=== PATIENT | female | born 1950 | race Caucasian/White ===

== ENCOUNTER 2016-12-02 10:12 | Emergency (ER) | payer MEDICARE, MEDICAID ==
[2016-12-02 10:29] VITALS: BP 148/83
--- NOTE | 2016-12-02 12:15 | ED ---
Lower Extremity - HPI Summary HPI Summary: Patient presents to the ED with CC of right knee pain after feeling a "pop" sensation last evening and has been unable to bear weight since that time. 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 She has injured the right knee last year after straining a muscle last fall. She has taken ibuprofen and tylenol with relief of pain. She arrives to the ED with a knee brace and feels this reduces her pain and is able to stand briefly on the knee with the knee brace. She has never injured the knee otherwise and has never had a ligamentous tear. Denies calf pain. Denies recent travel. She quit smoking 3 months ago. She has been icing with relief. Thorough physical exam was performed, focusing on knee special tests. Pain on palpation over lateral aspect and inferior aspect of knee with mild amount of effusion. Due to patient pain around injury, physical exam was limited. Valgus and varus force without pain. No posterior sag sign, -posterior drawer test, - anterior drawer test. Quadriceps active test negative. No temperature change or pallor noted bilaterally. No ecchymosis noted over knee. No lesion or disruption of skin is seen. Able to bear weight but with brace present. Pulses intact bilaterally. Cap refill good. Patient is in no acute distress and VS are good. - History of Current Complaint Chief Complaint: EDExtremityLower Stated Complaint: RT KNEE PAIN Time Seen by Provider: 12/02/16 11:34 Hx Obtained From: Patient Mechanism Of Injury: Twisted Onset of Pain: Immediate Onset/Duration: Hours Severity Initially: Moderate Severity Currently: Moderate Pain Intensity: 3 Pain Scale Used: 0-10 Numeric Timing: Constant Location: Is Discrete @ - inferior and lateral right knee Character Of Pain: Aching Associated Signs And Symptoms: Positive: Swelling Aggravating Factor(s): Standing, Ambulation Alleviating Factor(s): Rest, Other - brace Able to Bear Weight: Yes - Risk Factors Gout Risk Factors: Age Over 40 DVT Risk Factors: Malignancy Septic Arthritis Risk Factor: Negative - Allergies/Home Medications Allergies/Adverse Reactions: Allergies Allergy/AdvReac Type Severity Reaction Status Date / Time Penicillins Allergy Intermediate Anxiety Verified 08/09/16 17:26 Hydrocortisone Allergy Unknown Verified 08/09/16 17:26 Reaction Details NSAIDs Allergy Bleeding Verified 08/09/16 17:26 PMH/Surg Hx/FS Hx/Imm Hx Previously Healthy: Yes Endocrine/Hematology History: Denies: Hx Diabetes, Hx Thyroid Disease Cardiovascular History: Denies: Hx Hypertension Respiratory History: Denies: Hx Asthma, Hx Chronic Obstructive Pulmonary Disease (COPD) GI History: Reports: Hx Ulcer - esophageal ulcer - Cancer History Cancer Type, Location and Year: Breast cancer 2003, left breast, sentinel node biopsy -negative- had a lumpectomy, had chemo and radiation. - Surgical History Surgery Procedure, Year, and Place: Right breast lumpectomy 2003, Left ACL and lateral ligament 1979, tonsilectomy and adenoidectomy, Oral surgery - Immunization History Hx Pertussis Vaccination: No Immunizations Up to Date: Unable to Obtain/Confirm Infectious Disease History: No Infectious Disease History: Denies: Hx Hepatitis, Hx Human Immunodeficiency Virus (HIV), Traveled Outside the [place] in Last 30 Days - Family History Known Family History: Positive: Cardiac Disease, Other - prostate and breast CA Negative: Hypertension, Diabetes - Social History Occupation: Employed Part-time Lives: With Family Alcohol Use: None Alcohol Amount: sober 5 years Hx Substance Use: No Substance Use Type: Reports: None Smoking Status (MU): Former Smoker Review of Systems Constitutional: Negative Negative: Fever, Chills, Fatigue Eyes: Negative Cardiovascular: Negative Respiratory: Negative Genitourinary: Negative Positive: no symptoms reported, see HPI Positive: Arthralgia Skin: Negative Psychological: Normal All Other Systems Reviewed And Are Negative: Yes Physical Exam Triage Information Reviewed: Yes Vital Signs On Initial Exam: Initial Vitals Temp Pulse Resp BP Pulse Ox 97.6 F 84 20 148/83 100 12/02/16 10:26 12/02/16 10:26 12/02/16 10:26 12/02/16 10:12/02/16 10:26 Vital Signs Reviewed: Yes Appearance: Positive: Well-Appearing, Well-Nourished Skin: Positive: Warm, Skin Color Reflects Adequate Perfusion Head/Face: Positive: Normal Head/Face Inspection Eyes: Positive: EOMI, JOSESITO, Conjunctiva Clear Neck: Positive: Supple, No Lymphadenopathy Respiratory/Lung Sounds: Positive: Clear to Auscultation, Breath Sounds Present Cardiovascular: Positive: Normal, RRR, Pulses are Symmetrical in both Upper and Lower Extremities Musculoskeletal: Positive: Pain @ - inferior and lateral right knee Neurological: Positive: Normal, Sensory/Motor Intact, Speech Normal Psychiatric: Positive: Normal - Camila Coma Scale Coma Scale Total: 15 Diagnostics - Vital Signs Vital Signs Temp Pulse Resp BP Pulse Ox 12/02/16 10:26 97.6 F 84 20 148/83 100 - Laboratory Lab Statement: Any lab studies that have been ordered have been reviewed, and results considered in the medical decision making process. Lower Extremity Course/Dx - Course Course Of Treatment: Patient was triaged and assessed. History obtained by provider. Medications and allergies reviewed. Past medical history, surgical history and social history reviewed. Physical exam performed. Some laxity in the joint, but otherwise all tests normal including anterior drawer and sag sign. Patient sent to imaging. Xray negative for fracture or other acute findings. Soft tissue swelling noted over the knee. Patient given orthopedic follow up in 5-7 days. Encouraged Ibuprofen 600mg three times daily with meals for pain. Return precautions given. Educated patient regarding knee injuries and healing time and the possibility of further evaluation and imaging as orthopedist sees fit. She sees Dr. René Joe for arthritis and would like to be referred back. Patient educated on course of treatment and return precautions. Patient discharged home in stable condition with appropriate medications and interventions. She will continue with her brace, and will not receive a knee immobilizer at this time d/t the stability the brace provides her. She is OK with plan. - Diagnoses Differential Diagnosis/HQI/PQRI: Positive: Dislocation, Fracture (Closed), Sprain, Strain Provider Diagnoses: Knee strain Discharge - Discharge Plan Condition: Stable Disposition: HOME Patient Education Materials: Knee Pain (ED) Referrals: René Joe MD [Medical Doctor] - Matti Middleton MD [Primary Care Provider] - Additional Instructions: Ibuprofen 600mg three times daily with meals for pain. Follow up with orthopedic physician in 5-7 days. If numbness, tingling, decreased sensation, increased pain, temperature changes or pallor noted in toes, come back to ER immediately. Protect the area. For your comfort level, do not bear weight, pull or push until you can injury is somewhat healed. This may involve the need for immobilization or crutches for a period of time. Rest the involved area, but not too long. You may need to be off your injury for some time to allow for healing, however excessive immobilization of joints can lead to stiffness and delay healing time. Early mobilization is encouraged if it is pain-free. Ice. Not directly on the skin. Cover with a towel. Apply ice no more than 30 minutes at a time Compression: You may use and keep an papi wrap bandage over the injury to decrease swelling. Again, this should be limited and be taken off periodically to encourage early range of motion and mobilization. Elevate: Try to elevate the injured area above the heart whenever possible.
--- NOTE | 2016-12-02 12:29 | RAD ---
HISTORY: Right knee pain, injury COMPARISONS: None VIEWS: 5, Frontal, lateral, axial, and oblique views FINDINGS: BONE DENSITY: Normal. BONES: There is no displaced fracture. JOINTS: There is no arthropathy. There is no suprapatellar joint effusion or lipohemarthrosis. ALIGNMENT: There is no dislocation. SOFT TISSUES: Unremarkable. OTHER FINDINGS: None. IMPRESSION: NO ACUTE OSSEOUS INJURY. IF SYMPTOMS PERSIST, RECOMMEND REPEAT IMAGING.
== END 2016-12-02 13:12 | disposition home or self-care (01) ==
LOC: ED 10:12
DX: S86.911A Strain of unspecified muscle(s) and tendon(s) at lower leg level, right leg, initial encounter (principal); M25.561 Pain in right knee; Z87.891 Personal history of nicotine dependence; X58.XXXA Exposure to other specified factors, initial encounter; Y93.9 Activity, unspecified; Y92.9 Unspecified place or not applicable; Z85.3 Personal history of malignant neoplasm of breast
CPT/HCPCS: 99282

== ENCOUNTER 2018-02-14 09:54 | Emergency (ER) | payer MEDICARE, MEDICAID ==
[2018-02-14 10:05] VITALS: BP 131/82
--- NOTE | 2018-02-14 10:08 | UC ---
Lower Extremity/Ankle HPI - HPI Summary HPI Summary: Pleasant 67 yo female c/o L foot pain x approx 3 weeks. Seems worse last few days, guillermo in AM. Accidently got foot stuck between house and deck, felt pain immediately. Has been alternating heat / ice, without much relief. Has been taking ibuprofen, so far gi ok ("allergy" - gi), not sure how much helping. No prox calf pain. No pain in toes. Does have hx BLE distal neuropathy, not sure if hereditary vs medication related. Does have sensation LT both feet. Currently healthy although sign pmh. - History of Current Complaint Chief Complaint: UCLowerExtremity Stated Complaint: L FOOT INJURY Time Seen by Provider: 02/14/18 10:07 Hx Obtained From: Patient Pain Intensity: 7 - Allergies/Home Medications Allergies/Adverse Reactions: Allergies Allergy/AdvReac Type Severity Reaction Status Date / Time hydrocortisone Allergy Unknown Verified 02/14/18 10:07 Reaction Details NSAIDS (Non-Steroidal Allergy Bleeding Verified 02/14/18 10:07 Anti-Inflamma Penicillins Allergy Anxiety Verified 02/14/18 10:07 Home Medications: Home Medications Acetaminophen [APAP] 325 mg PO DAILY PRN 02/14/18 [History Confirmed 02/14/18] Anastrozole [Arimidex] 1 mg PO DAILY 02/14/18 [History Confirmed 02/14/18] Enalapril TAB* [Vasotec TAB*] 5 mg PO DAILY 02/14/18 [History Confirmed 02/14/18 ] PMH/Surg Hx/FS Hx/Imm Hx Previously Healthy: Yes - hx breast ca x 2 - Surgical History Surgical History: Yes Surgery Procedure, Year, and Place: Right breast lumpectomy 2003, Left ACL and lateral ligament 1979, tonsilectomy and adenoidectomy, Oral surgery - Family History Known Family History: Positive: Cardiac Disease, Other - prostate and breast CA Negative: Hypertension, Diabetes - Social History Alcohol Use: None Alcohol Amount: sober 5 years Substance Use Type: None Smoking Status (MU): Former Smoker When Did the Patient Quit Smoking/Using Tobacco: 2016 Review of Systems All Other Systems Reviewed And Are Negative: Yes Constitutional: Positive: Negative Skin: Positive: Bruising Eyes: Positive: Negative ENT: Positive: Negative Respiratory: Positive: Negative Cardiovascular: Positive: Negative Gastrointestinal: Positive: Negative Genitourinary: Positive: Negative Motor: Positive: Other - see hpi Neurovascular: Positive: Other - see hpi Musculoskeletal: Positive: Other: - see hpi Neurological: Positive: Other - see hpi Psychological: Positive: Negative Is Patient Immunocompromised?: No Physical Exam Triage Information Reviewed: Yes Appearance: Well-Appearing, Well-Nourished Vital Signs: Initial Vital Signs Temp 97.8 F 02/14/18 10:00 Pulse 85 02/14/18 10:00 Resp 14 02/14/18 10:00 BP 131/82 02/14/18 10:00 Pulse Ox 98 02/14/18 10:00 Vital Signs Reviewed: Yes Eye Exam: Normal - grossly normal ENT Exam: Normal - grossly normal Neck exam: Normal - no c/o pain nor injury Respiratory Exam: Normal - RR normal. No tachypnea, no dyspnea. Cardiovascular Exam: Normal - HR normal. Nondiaphoretic. DP and PT 1+ palp bilat. Good Cap refill x 10 digits. Abdominal Exam: Normal Abdomen Description: Positive: Nontender - no c/o Musculoskeletal Exam: Other - Both lower ext + evidence varicosities venous, scattered hemosiderosis L>R. L foot +swelling and eccymosis distal foot approx distal 3rd and 2nd MT region. Able to bear weight (declines wheelchair or crutches). No prox t-f tenderness. Neurological Exam: Other - grossly nonfocal except BLE neuropathy chronic c/o ( pain / dysesthesia) Psychological Exam: Normal - conversing easily and appropriately Skin Exam: Normal - see above re further details Lower Extremity Course/Dx - Course Course Of Treatment: Xray L foot - reviewed with pt. F/u Dr. Cool - she will call for appt. CAM boot today. Reviewed coa / tx plan. Questions answered to the best of my ability. - Differential Dx/Diagnosis Provider Diagnosis: Sprain of left foot, Bruise, Venous hypertension of both lower extremities Discharge - Sign-Out/Discharge Documenting (check all that apply): Patient Departure All imaging exams completed and their final reports reviewed: Yes - Discharge Plan Condition: Stable Disposition: HOME Patient Education Materials: Foot Sprain (ED), Foot Contusion (ED), Leg Edema ( ED), Venous Insufficiency (DC) Referrals: Matti Middleton MD [Primary Care Provider] - Joseline Ely DPM [Doctor of Podiatric Medicine] - Additional Instructions: Follow up with Dr. Ely, call for appointment in the next week if possible. Follow up with your primary care physician, in the next couple weeks. Consider compression stockings - check with your primary care physician. CAM boot during the day, for comfort. Seek medical attention for worse or new problems. - Billing Disposition and Condition Condition: STABLE Disposition: Home
== END 2018-02-14 11:51 | disposition home or self-care (01) ==
LOC: UCEAST 09:54
DX: S90.32XA Contusion of left foot, initial encounter (principal); S93.602A Unspecified sprain of left foot, initial encounter; W23.0XXA Caught, crushed, jammed, or pinched between moving objects, initial encounter; I87.303 Chronic venous hypertension (idiopathic) without complications of bilateral lower extremity; Y92.008 Other place in unspecified non-institutional (private) residence as the place of occurrence of the external cause; Z88.6 Allergy status to analgesic agent; Z88.0 Allergy status to penicillin; Z88.8 Allergy status to other drugs, medicaments and biological substances; Z85.3 Personal history of malignant neoplasm of breast; Z87.891 Personal history of nicotine dependence
CPT/HCPCS: 99212; G0463

== ENCOUNTER 2018-08-24 08:45 | Emergency (ER) | payer MEDICAID, MEDICARE ==
[2018-08-24 08:59] VITALS: BP 118/82
--- NOTE | 2018-08-24 09:11 | UC ---
General HPI - HPI Summary HPI Summary: COncerned about pink eye - was exposed last week. Past few days both eyes red, watery and itchy. Some drainage this morning. NO visual changes. No URI symptoms. NO allergy symptoms. Asthma well controlled. Meds: Reviewed - History of Current Complaint Chief Complaint: UCEye Stated Complaint: EYE COMPLAINT Time Seen by Provider: 08/24/18 09:01 Pain Intensity: 0 - Allergy/Home Medications Allergies/Adverse Reactions: Allergies Allergy/AdvReac Type Severity Reaction Status Date / Time hydrocortisone Allergy Unknown Verified 08/24/18 08:59 Reaction Details NSAIDS (Non-Steroidal Allergy Bleeding Verified 08/24/18 08:59 Anti-Inflamma Penicillins Allergy Anxiety Verified 08/24/18 08:59 Home Medications: Home Medications Zoledronic Acid* [Zometa] 4 mg .SEE ORDER SEE INSTRUCTIONS 08/24/18 [History Confirmed 08/24/18] PMH/Surg Hx/FS Hx/Imm Hx Previously Healthy: Yes Cardiovascular History: Hypertension - Surgical History Surgical History: Yes Surgery Procedure, Year, and Place: Right breast lumpectomy 2003, Left ACL and lateral ligament 1979, tonsilectomy and adenoidectomy, Oral surgery - Family History Known Family History: Positive: Cardiac Disease, Other - prostate and breast CA Negative: Hypertension, Diabetes - Social History Alcohol Use: None Alcohol Amount: sober 5 years Substance Use Type: None Smoking Status (MU): Former Smoker When Did the Patient Quit Smoking/Using Tobacco: 2016 Review of Systems All Other Systems Reviewed And Are Negative: Yes Physical Exam Triage Information Reviewed: Yes Appearance: Well-Appearing Vital Signs: Initial Vital Signs Temp 97.7 F 08/24/18 08:52 Pulse 75 08/24/18 08:52 Resp 18 08/24/18 08:52 BP 118/82 08/24/18 08:52 Pulse Ox 98 08/24/18 08:52 Vital Signs Reviewed: Yes Eyes: Positive: Conjunctiva Inflamed ENT: Positive: Normal ENT inspection Neck: Positive: Supple Respiratory: Positive: Lungs clear, Normal breath sounds Cardiovascular: Positive: RRR, No Murmur Course/Dx - Course Course Of Treatment: This is a 68 yr old with b/l eye drainage and itching Plan Continue good handwashing Start antibiotic eye drops as prescribed If symptoms persist or worsen, recommend follow up with PCP or return to urgent care - Diagnoses Provider Diagnosis: Conjunctivitis Discharge - Sign-Out/Discharge Documenting (check all that apply): Patient Departure All imaging exams completed and their final reports reviewed: No Studies - Discharge Plan Condition: Good Disposition: HOME Prescriptions: Polymyx/Trimethoprim OPTH* [Polytrim OPHTH*] 2 drop BOTH EYES TID #1 btl Patient Education Materials: Conjunctivitis (ED) Forms: *Work Release Referrals: Matti Middleton MD [Primary Care Provider] - Additional Instructions: Continue good handwashing Start antibiotic eye drops as prescribed If symptoms persist or worsen, recommend follow up with PCP or return to urgent care - Billing Disposition and Condition Condition: GOOD Disposition: Home
== END 2018-08-24 09:17 | disposition home or self-care (01) ==
LOC: UCEAST 08:45
DX: H10.9 Unspecified conjunctivitis (principal); I10 Essential (primary) hypertension; Z88.0 Allergy status to penicillin; Z87.891 Personal history of nicotine dependence
CPT/HCPCS: 99212; G0463